=== PATIENT | female | born 1975 | race Caucasian/White ===

== ENCOUNTER 2016-10-26 06:45 | Inpatient (IN) | payer OTHER ==
[2016-10-26] MEDS ORDERED: OXYTOCIN/RINGERS LACTATE 1,000 ML IV PRN (07:34)
[2016-10-26] MEDS ORDERED: LR 1,000 ML IV PRN (07:34)
[2016-10-26] MEDS ORDERED: IBUPROFEN 600 MG TAB PO PRN (07:34)
[2016-10-26] MEDS ORDERED: TERBUTALINE SULFATE 1 MG/ML VIAL IV PRN (07:34)
[2016-10-26] MEDS ORDERED: OLIVE OIL 118 ML BTL MISC PRN (07:34)
[2016-10-26] MEDS ORDERED: AMPICILLIN SODIUM 2 GM in NS 100 ML IV ONE (07:34)
[2016-10-26] MEDS ORDERED: EPSOM SALT 454 GM TP PRN (07:34)
[2016-10-26 08:03] LABS: ABSOLUTE IMMATURE GRANULOCYTES 0.07 10^3/uL (0.00-0.10); ADD DIFF? NO; ADD MORPH? NO; ADD SCAN? NO; ATYPICAL LYMPHOCYTE FLAG 0 (0-99); FRAGMENT RBC FLAG 0 (0-99); HEMATOCRIT 35.5 % (38.0-47.0); HEMOGLOBIN 12.3 g/dL (12.6-16.3); LEFT SHIFT FLG 0 (0-99); LIPEMIA HEMOLYSIS FLAG 90 (0-99); MEAN CELL HEMOGLOBIN 30.8 pg (27.9-34.1); MEAN CELL HEMOGLOBIN CONCENTR. 34.6 g/dL (32.4-36.7); MEAN PLATELET VOLUME 10.7 fL (8.7-11.7); PLATELET CLUMPS FLAG 0 (0-99); PLATELET COUNT 130 10^3/uL (150-400); RED BLOOD CELL COUNT 3.99 10^6/uL (4.18-5.33); RED CELL DISTRIBUTION WIDTH 13.5 % (11.5-15.2)
--- NOTE | 2016-10-26 08:06 | OBPROG ---
OBG Labor Progress Note Assessment/Plan: Assessment: intermittent monitoring after 20-30 minute initial strip cat1 denies pain no regular contractions discussed nipple stimulation will try this discussed augmentation of labor discussed usual protocol begin pitocin 12h after initial rom leaking clear fluid gbs positive IV started for antibiotics deferred exam Plan:gbs positive/, nipple stimulation, possible augmentation 10/26/16 08:01 10/26/16 08:06 Objective: deferrred exam rom 2100 10/25/2016. GBS positive will begin antibiotics arlette - Physical Exam General Appearance: WD/WN, alert, no apparent distress Respiratory: chest non-tender, lungs clear, normal breath sounds Cardiac/Chest: regular rate, rhythm Abdomen: normal bowel sounds Extremities: normal range of motion, Dwayne's sign (negative bilaterally) DTR- Lower Extremities: Knee (R): 1+, Knee (L): 1+ (no clonus) Skin: normal color, warm/dry Neuro/Psych: no motor/sensory deficits, alert, normal mood/affect, oriented x 3 ICD10 Worksheet Patient Problems: Problems Problem Status Onset Full-term premature rupture of membranes, onset of labor within 24 hours of rupture Acute term rom/ labor Acute - ICD10 Problem Qualifiers (1) Full-term premature rupture of membranes, onset of labor within 24 hours of rupture
--- NOTE | 2016-10-26 08:43 | GHP ---
[f rep st] HISTORY AND PHYSICAL DATE OF ADMISSION: 10/26/2016 HISTORY OF PRESENT ILLNESS: The patient is a 40-year-old, 2, para 1, with an EDC of 10/29/2016 with a gestational age of 39-4/7ths weeks, who comes in at 7 o'clock on 10/26/2016 with complaints of rupture of membranes since March 2099 on 10/25/2016. Denies regular contractions. States feeling positive movement. States leaking clear fluid which was checked with AmniSure and found to be positive. Mid category 1 heart rate. Conversation with the patient about the potential plan of care, Pitocin versus nipple stimulation to allow for regular contractions. At this time, patient is electing to do nipple stimulation. MEDICAL HISTORY: The patient is AMA, mild anemia, acid reflux. GYNECOLOGICAL HISTORY: Condoms, NuvaRing and OCP use. summer, Pap was within normal limits. FAMILY HISTORY: Noncontributory. SOCIAL HISTORY: Patient is , has 1 other child at home. Denies smoking history as well as alcohol history. SURGICAL HISTORY: Rayne teeth. LABS: Patient is O positive. Antibody negative. RPR is nonreactive. Rubella is immune. Hepatitis is negative. HIV is negative. Cystic fibrosis was negative. [employer] panel 04/02/2016 was negative. TSH on 04/02/2016 was 1.2. Gonorrhea and chlamydia are negative. Verifi was negative. 1-hour GTT was within normal limits. Patient is anemic. Today on admission 32.2 hematocrit. PAST HISTORY: 03/2012, a male that weighed 7 pounds, 14 ounces at 41- 2/7 weeks, 7-9 hours of labor and vaginal delivery. PHYSICAL ASSESSMENT: GENERAL: Patient is awake, alert, oriented x3. LUNGS: Clear bilaterally. ABDOMEN: Bowel sounds are positive in all 4 quadrants. EXTREMITIES: DTRs are 1+ with no clonus. Homans' sign is negative bilaterally. No contractions at this time. The patient is GBS positive. Will begin antibiotics. PLAN OF CARE: 1. GBS positive. Antibiotics. 2. No labor, at this time, planning nipple stimulation. 3. Consult physician Dr. Veronika Wells as needed. /[id number]/MODL MTDD
[2016-10-26] MEDS ORDERED: LIDOCAINE 1% 300 MG/30 ML SDV ONE (10:00)
[2016-10-26] MEDS ORDERED: OLIVE OIL 118 ML BTL ONE (10:00)
[2016-10-26] MEDS ORDERED: AMMONIA AROMATIC 1 EACH AMP IH ONE (10:01)
[2016-10-26] MEDS ORDERED: TERBUTALINE SULFATE 1 MG/ML VIAL ONE (10:01)
[2016-10-26] MEDS ORDERED: MISOPROSTOL 200 MCG TAB ONE (10:01)
[2016-10-26] MEDS ORDERED: OXYTOCIN/RINGERS LACTATE 500 ML IV SCH (11:00)
[2016-10-26] MEDS: AMPICILLIN SODIUM 1 GM in NS 100 ML IV SCH ×3 (12:25→20:13)
--- NOTE | 2016-10-26 14:37 | OBPROG ---
OBG Labor Progress Note Assessment/Plan: Assessment: continuous monitoring cat1 denies pain no regular contractions stopped nipple stimulation discussed augmentation at patients request again before starting pitocin leaking clear fluid gbs positive IV started for antibiotics 2 doses in before pitocin begun per protocol deferred exam Plan:augmentation with pitocin 10/26/16 08:01 10/26/16 08:06 10/26/16 14:33 Objective: 10/26/16 07:40 Patient ABO/Rh O POSITIVE 10/26/16 07:40 Oxytocin Orders Assessment - Pre-Induction/Augmentation Assessment Gestational Age: 39 week(s) and 4 day(s) ICD10 Worksheet Patient Problems: Problems Problem Status Onset Full-term premature rupture of membranes, onset of labor within 24 hours of rupture Acute term rom/ labor Acute - ICD10 Problem Qualifiers (1) Full-term premature rupture of membranes, onset of labor within 24 hours of rupture
--- NOTE | 2016-10-26 19:40 | OBPROG ---
OBG Labor Progress Note Assessment/Plan: Assessment:1630 continuous monitoring cat1 regular contractions q3-4 pitocin at 6mu leaking clear fluid multiple doses ampicillin for GBS /-2 Plan:augmentation with pitocin 10/26/16 08:01 10/26/16 08:06 10/26/16 14:33 10/26/16 19:37 Objective: 10/26/16 07:40 Patient ABO/Rh O POSITIVE 10/26/16 07:40 - SVE Dilation (cm): 6 Effacement (%): 80 Station: -2 Oxytocin Orders Assessment - Pre-Induction/Augmentation Assessment Gestational Age: 39 week(s) and 4 day(s) ICD10 Worksheet Patient Problems: Problems Problem Status Onset Full-term premature rupture of membranes, onset of labor within 24 hours of rupture Acute term rom/ labor Acute - ICD10 Problem Qualifiers (1) Full-term premature rupture of membranes, onset of labor within 24 hours of rupture
--- NOTE | 2016-10-26 19:41 | OBPROG ---
OBG Labor Progress Note Assessment/Plan: Assessment:1630 continuous monitoring cat2 regular contractions q3-4 pitocin at 8mu leaking clear fluid multiple doses ampicillin for GBS 80/-2 greater pain with the contractions tub for pain relief Plan:augmentation with pitocin 10/26/16 08:01 10/26/16 08:06 10/26/16 14:33 10/26/16 19:37 10/26/16 19:40 Objective: 10/26/16 07:40 Patient ABO/Rh O POSITIVE 10/26/16 07:40 Oxytocin Orders Assessment - Pre-Induction/Augmentation Assessment Gestational Age: 39 week(s) and 4 day(s) ICD10 Worksheet Patient Problems: Problems Problem Status Onset Full-term premature rupture of membranes, onset of labor within 24 hours of rupture Acute term rom/ labor Acute - ICD10 Problem Qualifiers (1) Full-term premature rupture of membranes, onset of labor within 24 hours of rupture
[2016-10-26] MEDS ORDERED: DOCUSATE SODIUM 100 MG CAP PO PRN (21:51)
[2016-10-26] MEDS ORDERED: SIMETHICONE 80 MG TAB CHEW PO PRN (21:51)
[2016-10-26] MEDS ORDERED: ACETAMINOPHEN 325 MG TAB PO PRN (21:51)
[2016-10-26] MEDS ORDERED: HYDROCODONE/APAP 5/325 TAB PO PRN (21:51)
[2016-10-26] MEDS ORDERED: HYDROCORTISONE 0.5% CREAM TP PRN (21:51)
--- NOTE | 2016-10-26 21:51 | OBDEL ---
Info Type: Vaginal GBS+: Yes Antibiotic Used for + GBS: Ampicillin Number of Antibiotic Doses Given: 4 Indications for Delivery: Spontaneous Labor, SROM Vaginal Delivery - Labor and Delivery Onset of Contractions Date: 10/26/16 Onset of Contractions Time: 13:34 Onset of Contractions Type: Augmented Rupture of Membranes Date: 10/25/16 Rupture of Membranes Time: 21:00 Rupture of Membranes Type: Spontaneous Amniotic Fluid Color: Clear Dilation Complete Date: 10/26/16 Dilation Complete Time: 21:06 Placenta Delivery Date: 10/26/16 Placenta Delivery Time: 21:27 Total Hours of Labor: 7 Laceration: 2nd Degree Repair: 3-0, Vicryl Vaginal Sponge Count Correct: Yes Vaginal Needle Count Correct: Yes Vaginal Sweep Performed: No EBL: 350 Delivery Events: Nuchal Cord - Medications Labor Augmentation/Induction Methods Used: Pitocin (prolonged rupture of membranes) Data [place] Delivery Date: 10/26/16 Delivery Time: 21:22 CHAMP: 10/29/16 Gestational Age: 39 week(s) and 4 day(s) Sex of : Male Score (1 Min): 8 Score (5 Min): 9 ICD10 Worksheet Patient Problems: Problems Problem Status Onset Full-term premature rupture of membranes, onset of labor within 24 hours of rupture Acute term rom/ labor Acute - ICD10 Problem Qualifiers (1) Full-term premature rupture of membranes, onset of labor within 24 hours of rupture
[2016-10-27] MEDS: AMPICILLIN SODIUM 1 GM in NS 100 ML IV SCH ×2 (01:02→05:36)
[2016-10-27 05:29] LABS: HEMATOCRIT 33.1 % (38.0-47.0); HEMOGLOBIN 11.4 g/dL (12.6-16.3); MEAN CELL HEMOGLOBIN 30.2 pg (27.9-34.1); MEAN CELL HEMOGLOBIN CONCENTR. 34.4 g/dL (32.4-36.7); MEAN CELL VOLUME 87.8 fL (81.5-99.8); RED BLOOD CELL COUNT 3.77 10^6/uL (4.18-5.33); RED CELL DISTRIBUTION WIDTH 13.3 % (11.5-15.2)
--- NOTE | 2016-10-27 09:46 | OBPP ---
Progress Note Assessment/Plan: Assessment: 1) s/p PPD # 1 - pt is stable 2) Anemia - pt is asymptomatic Plan: Continue routine pp care Will start iron Plan for d/c in am 10/2810/27/16 09:44 Subjective: Pt seen and examined. Doing well with no complaints. Minimal cramping. Moderate lochia. Pt is OOB, karla regular diet, voiding without difficulty and passing flatus. No BM yet. BF without difficulty. Objective: 10/27/16 05:00 Patient ABO/Rh O POSITIVE 10/26/16 07:40 Temp Pulse Resp BP Pulse Ox 36.9 C 77 17 124/82 H 94 10/27/16 08:00 10/27/16 08:00 10/27/16 08:00 10/27/16 08:00 10/27/16 08:00 Uterine Position/Fundal Height: Umbilicus -2 Uterine Tone: Firm Physical Exam - Physical Exam General Appearance: WD/WN, alert, no apparent distress Respiratory: lungs clear, normal breath sounds Cardiac/Chest: regular rate, rhythm Abdomen: normal bowel sounds, non-tender, soft, flatus (+) Extremities: non-tender, normal inspection Skin: normal color, warm/dry Neuro/Psych: alert, normal mood/affect, oriented x 3
[2016-10-27] MEDS: IRON POLYSAC/IRON HEME 28 MG TAB PO SCH (19:55)
[2016-10-27] MEDS ORDERED: CALCIUM CARBONATE 500 MG CHEWABLE TAB PO PRN ×2 (20:11→20:12)
[2016-10-27 20:57] VITALS: O2SAT 95
[2016-10-28 08:45] VITALS: BP 120/71; PULSE 90; RESP 16; TEMP 98.2
--- NOTE | 2016-10-28 09:09 | OBPP ---
Progress Note Assessment/Plan: Assessment: 40yo s/p PPD#2 Anemia 2nd degree laceration Plan: d/c home today discharge instructions given: S&S of infection pericare bleeding precautions depression contraceptives pelvic rest cont PO iron, rx given ibuprofen rx given f/u in office in 4 weeks for mood check, 6wks for PP visit 10/28/16 09:10 Subjective: Pt doing well, she has no complaints; desires d/c home today FOB supportive at BS Objective: 10/27/16 05:00 Patient ABO/Rh O POSITIVE 10/26/16 07:40 Temp Pulse Resp BP Pulse Ox 36.8 C 90 16 120/71 95 10/28/16 08:15 10/28/16 08:15 10/28/16 08:15 10/28/16 08:15 10/28/16 08:15 VSS, normotensive and afebrile Uterine Position/Fundal Height: Umbilicus -3 Uterine Tone: Firm Physical Exam - Physical Exam General Appearance: WD/WN, alert, no apparent distress EENT: PERRL/EOMI Neck: supple Abdomen: non-tender, soft, other (uterus firm @ U-3 and nontender) Extremities: normal range of motion, non-tender, other (negative homans sign, negative edema) Skin: normal color, warm/dry Neuro/Psych: alert, normal mood/affect, oriented x 3
--- NOTE | 2016-10-28 09:17 | OBGCSDC ---
General Delivery Information - General Info : 2 Para: 2 Delivery Physician/CNM: Patricia Monaco Labs: Patient ABO/Rh O POSITIVE 10/26/16 07:40 Hct 33.1 % (38.0-47.0) L 10/27/16 05:00 Vaginal - Diagnosis Labor: Augmented Rupture of Membranes Type: Spontaneous Amniotic Fluid Color: Clear Laceration: 2nd Degree Repair: 3-0, Vicryl Delivery Events: Nuchal Cord - Operations/Procedures L&D Analgesia/Anesthesia Type: Local - Hospital Course Antepartum: AMA Intrapartum: SROM 10/25/16 @ 2100 GBS+, received 4 doses Ampicillin Augmentation 2nd degree with repair : uncomplicated minimal cramping moderate lochia BF without difficulty Hct 33.1 - Delivery L&D Analgesia/Anesthesia Type: Local [place] Data [facility] Delivery Date: 10/26/16 Delivery Time: 21:22 CHAMP: 10/29/16 Gestational Age: 39 week(s) and 6 day(s) Sex of : Male Weight (gm): 3072 g Score (1 Min): 8 Score (5 Min): 9
[2016-10-28] MEDS: IRON POLYSAC/IRON HEME 28 MG TAB PO SCH (09:47)
== END 2016-10-28 10:10 | disposition home or self-care (01) | DRG 775 ==
LOC: FLD 06:45 → OBSVTOIN 06:45 → FOB 23:36
PROVIDERS: ADMIT Advanced Practice Midwife; ATTEND Advanced Practice Midwife
DX: O42.02 Full-term premature rupture of membranes, onset of labor within 24 hours of rupture (principal); O70.1 Second degree perineal laceration during delivery; O99.824 Streptococcus B carrier state complicating childbirth; O99.013 Anemia complicating pregnancy, third trimester; O69.89X0 Labor and delivery complicated by other cord complications, not applicable or unspecified; O09.523 Supervision of elderly multigravida, third trimester; D64.9 Anemia, unspecified; Z3A.39 39 weeks gestation of pregnancy; Z37.0 Single live birth
CPT/HCPCS: J0290; J2590; J3105

== ENCOUNTER 2018-05-11 04:20 | Emergency (ER) | payer OTHER | END 2018-05-11 05:05 | disposition home or self-care (01) ==